=== PATIENT | male | born 1995 | race Caucasian/White ===

== ENCOUNTER 2018-02-06 06:58 | Observation (INO) | payer OTHER ==
[2018-02-06] MEDS ORDERED: MORPHINE SULFATE 4MG/4ML SYRG IV STA (07:34)
[2018-02-06] MEDS ORDERED: MORPHINE SULFATE 4 MG/ML SYRINGE IV STA (07:34)
[2018-02-06] MEDS ORDERED: RX INFO: IV CONTRAST WAS GIVEN 1 EACH MISC MISCELLANE PRN (07:34)
[2018-02-06] MEDS ORDERED: SODIUM CHLORIDE 0.9% 1,000 ML IV STA (07:34)
[2018-02-06] MEDS ORDERED: ONDANSETRON 4 MG/2 ML VIAL IVP STA (07:34)
--- NOTE | 2018-02-06 07:37 | ED ---
General Adult HPI - General Chief complaint: Abdominal Pain Stated complaint: Lower Abdominal Pain Time Seen by Provider: 02/06/18 07:26 Source: patient, family, RN notes reviewed Mode of arrival: wheelchair Limitations: no limitations - History of Present Illness Initial comments: Patient is a pleasant 22-year-old male presenting to the emergency department with complaints of abdominal discomfort. Onset of symptoms was yesterday. Onset was fairly sudden. Patient states discomfort has progressively worsened since that time. Patient has had nausea with several episodes of vomiting. No fever. Discomfort is positional. No history of similar symptoms previously. No hematuria or dysuria. No constipation or diarrhea. - Related Data Allergies Allergy/AdvReac Type Severity Reaction Status Date / Time aspirin Allergy Swelling Verified 02/06/18 07:11 Review of Systems ROS Statement: Those systems with pertinent positive or pertinent negative responses have been documented in the HPI. ROS Other: All systems not noted in ROS Statement are negative. Constitutional: Denies: fever Eyes: Denies: eye pain ENT: Denies: ear pain Respiratory: Denies: cough Cardiovascular: Denies: chest pain Endocrine: Denies: fatigue Gastrointestinal: Reports: abdominal pain, nausea, vomiting Genitourinary: Denies: dysuria Musculoskeletal: Denies: arthralgia Skin: Denies: rash Neurological: Denies: weakness Past Medical History Past Medical History: No Reported History History of Any Multi-Drug Resistant Organisms: None Reported Past Surgical History: No Surgical Hx Reported Past Psychological History: No Psychological Hx Reported Smoking Status: Current every day smoker Past Alcohol Use History: Rare Past Drug Use History: None Reported General Exam Limitations: no limitations General appearance: alert Head exam: Present: atraumatic Eye exam: Present: normal appearance Neck exam: Present: normal inspection Respiratory exam: Present: normal lung sounds bilaterally Cardiovascular Exam: Present: regular rate, normal rhythm Expanded Peripheral pulses: 2+: Dorsalis Pedis (R), Dorsalis Pedis (L) GI/Abdominal exam: Present: soft, tenderness (Moderate to severe tenderness right lower quadrant), guarding, normal bowel sounds. Absent: distended, pulsatile mass Expanded GI/Abdominal exam: Present: obturator sign Extremities exam: Present: normal inspection Back exam: Present: tenderness (Minimal tenderness below the right CVA) Neurological exam: Present: alert Psychiatric exam: Present: normal affect, normal mood Skin exam: Present: normal color Course Vital Signs 02/06/18 07:09 Temperature 97.8 F Pulse Rate 77 Respiratory 24 Rate Blood Pressure 142/87 O2 Sat by Pulse 100 Oximetry - Reevaluation(s) Reevaluation #1: 02/06/18 08:49 Patient does meet sepsis criteria. Blood culture and lactic acid and IV antibiotics have been ordered. Medical Decision Making - Medical Decision Making Patient is reevaluated and updated. Patient is resting comfortably in bed. Case was discussed in detail with Dr. bocanegra, who will take patient to the OR. - Lab Data Result diagrams: 02/06/18 07:25 02/06/18 07:25 Lab Results 02/06/18 02/06/18 02/06/18 Range/Units 07:25 07:25 07:25 WBC 17.3 H (3.8-10.6) k/uL RBC 5.71 (4.30-5.90) m/uL Hgb 17.7 H (13.0-17.5) gm/dL Hct 48.8 (39.0-53.0) % MCV 85.4 (80.0-100.0) fL MCH 31.0 (25.0-35.0) pg MCHC 36.3 (31.0-37.0) g/dL RDW 12.2 (11.5-15.5) % Plt Count 255 (150-450) k/uL Neutrophils % 80 % Lymphocytes % 12 % Monocytes % 6 % Eosinophils % 1 % Basophils % 0 % Neutrophils # 13.8 H (1.3-7.7) k/uL Lymphocytes # 2.1 (1.0-4.8) k/uL Monocytes # 1.1 H (0-1.0) k/uL Eosinophils # 0.1 (0-0.7) k/uL Basophils # 0.1 (0-0.2) k/uL Hyperchromasia Slight PT 10.3 (9.0-12.0) sec INR 1.1 (<1.2) APTT 23.4 (22.0-30.0) sec Sodium 138 (137-145) mmol/L Potassium 4.5 (3.5-5.1) mmol/L Chloride 98 (98-107) mmol/L Carbon Dioxide 25 (22-30) mmol/L Anion Gap 15 mmol/L BUN 12 (9-20) mg/dL Creatinine 0.95 (0.66-1.25) mg/dL Est GFR (CKD-EPI)AfAm >90 (>60 ml/min/1.73 sqM) Est GFR (CKD-EPI)NonAf >90 (>60 ml/min/1.73 sqM) Glucose 114 H (74-99) mg/dL Calcium 10.8 H (8.4-10.2) mg/dL Total Bilirubin 1.7 H (0.2-1.3) mg/dL AST 53 (17-59) U/L ALT 49 (21-72) U/L Alkaline Phosphatase 85 (38-126) U/L Total Protein 8.1 (6.3-8.2) g/dL Albumin 4.9 (3.5-5.0) g/dL Amylase 54 (30-110) U/L Lipase 76 (23-300) U/L Urine Color Urine Appearance (Clear) Urine pH (5.0-8.0) Ur Specific [place] (1.001-1.035) Urine Protein (Negative) Urine Glucose (UA) (Negative) Urine Ketones (Negative) Urine Blood (Negative) Urine Nitrite (Negative) Urine Bilirubin (Negative) Urine Urobilinogen (<2.0) mg/dL Ur Leukocyte Esterase (Negative) 02/06/18 Range/Units 08:25 WBC (3.8-10.6) k/uL RBC (4.30-5.90) m/uL Hgb (13.0-17.5) gm/dL Hct (39.0-53.0) % MCV (80.0-100.0) fL MCH (25.0-35.0) pg MCHC (31.0-37.0) g/dL RDW (11.5-15.5) % Plt Count (150-450) k/uL Neutrophils % % Lymphocytes % % Monocytes % % Eosinophils % % Basophils % % Neutrophils # (1.3-7.7) k/uL Lymphocytes # (1.0-4.8) k/uL Monocytes # (0-1.0) k/uL Eosinophils # (0-0.7) k/uL Basophils # (0-0.2) k/uL Hyperchromasia PT (9.0-12.0) sec INR (<1.2) APTT (22.0-30.0) sec Sodium (137-145) mmol/L Potassium (3.5-5.1) mmol/L Chloride (98-107) mmol/L Carbon Dioxide (22-30) mmol/L Anion Gap mmol/L BUN (9-20) mg/dL Creatinine (0.66-1.25) mg/dL Est GFR (CKD-EPI)AfAm (>60 ml/min/1.73 sqM) Est GFR (CKD-EPI)NonAf (>60 ml/min/1.73 sqM) Glucose (74-99) mg/dL Calcium (8.4-10.2) mg/dL Total Bilirubin (0.2-1.3) mg/dL AST (17-59) U/L ALT (21-72) U/L Alkaline Phosphatase (38-126) U/L Total Protein (6.3-8.2) g/dL Albumin (3.5-5.0) g/dL Amylase (30-110) U/L Lipase (23-300) U/L Urine Color Yellow Urine Appearance Clear (Clear) Urine pH 8.5 H (5.0-8.0) Ur Specific [place] 1.036 H (1.001-1.035) Urine Protein Trace H (Negative) Urine Glucose (UA) Negative (Negative) Urine Ketones 1+ H (Negative) Urine Blood Negative (Negative) Urine Nitrite Negative (Negative) Urine Bilirubin Negative (Negative) Urine Urobilinogen <2.0 (<2.0) mg/dL Ur Leukocyte Esterase Negative (Negative) - Radiology Data Radiology results: report reviewed (Computed tomography scan positive for appendicitis.) Critical Care Time Critical Care Time: Yes Total Critical Care Time: 34 Disposition Clinical Impression: Acute appendicitis, Sepsis Disposition: ADMITTED IP TO THIS [facility] Condition: Serious Is patient prescribed a controlled substance at d/c from ED?: No Referrals: None,Stated [Primary Care Provider] - 1-2 days Decision Time: 08:53
[2018-02-06] MEDS ORDERED: MORPHINE SULFATE 4MG/4ML SYRG ONE (07:39)
[2018-02-06 08:08] LABS: Basophils # (A) 0.1 k/uL (0-0.2); Basophils % (A) 0 %; Eosinophils # (A) 0.1 k/uL (0-0.7); Eosinophils % (A) 1 %; HCT 48.8 % (39.0-53.0); HGB 17.7 gm/dL (13.0-17.5); Hyperchromasia Slight; Lymphocytes # (A) 2.1 k/uL (1.0-4.8); Lymphocytes % (A) 12 %; MCHC 36.3 g/dL (31.0-37.0); MCV 85.4 fL (80.0-100.0); Mean Platelet Volume 9.2; Monocytes # (A) 1.1 k/uL (0-1.0); Monocytes % (A) 6 %; Neutrophils # (A) 13.8 k/uL (1.3-7.7); Neutrophils % (A) 80 %; Platelet Count 255 k/uL (150-450); RBC 5.71 m/uL (4.30-5.90); RDW 12.2 % (11.5-15.5); WBC 17.3 k/uL (3.8-10.6)
[2018-02-06 08:17] LABS: INR 1.1 (<1.2); Partial Thromboplastin Time 23.4 sec (22.0-30.0); Prothrombin Time 10.3 sec (9.0-12.0)
[2018-02-06 08:18] LABS: ALT 49 U/L (21-72); AST 53 U/L (17-59); Albumin 4.9 g/dL (3.5-5.0); Alkaline Phosphatase 85 U/L (38-126); Amylase 54 U/L (30-110); Anion Gap 15 mmol/L; Blood Urea Nitrogen 12 mg/dL (9-20); Calcium 10.8 mg/dL (8.4-10.2); Carbon Dioxide 25 mmol/L (22-30); Chloride 98 mmol/L (98-107); Glucose 114 mg/dL (74-99); Lipase 76 U/L (23-300); Potassium 4.5 mmol/L (3.5-5.1); Sodium 138 mmol/L (137-145); Total Bilirubin 1.7 mg/dL (0.2-1.3); Total Protein 8.1 g/dL (6.3-8.2)
--- NOTE | 2018-02-06 08:21 | CT ---
EXAMINATION TYPE: CT abdomen pelvis w con DATE OF EXAM: 02/06/2018 REFERENCE: NONE HISTORY: abdominal pain HISTORY: RLQ pain REFERENCE: NONE CT DLP: 1008.5 mGy Automated exposure control for dose reduction was used. TECHNIQUE: Helical acquisition through the abdomen and pelvis was obtained following the oral ingesti on of without Oral Contrast and following intravenous administration of 100 mL of Isovue 300. The suzie a was reformatted in axial, coronal and sagittal projections. FINDINGS: Visualized portions of the lungs are clear. There is no pleural or pericardial fluid. The heart is not enlarged. There is a tiny hiatal hernia. Within the abdomen, the liver, spleen and gallbladder appear normal. Both adrenal glands appear normal. Both kidneys demonstrate function and appear morphologically normal. The pancreas is unremarkable. There is no significant retroperitoneal, iliac or inguinal adenopathy. The bladder is unremarkable. There is no significant diverticular change and there is no radiographic evidence of diverticulitis. The appendix is swollen measuring 10 mm. There is periappendiceal inflammation. There is no definite abscess. Small bowel loops are normal. There is no free fluid and no free air. No bony lesion is seen. IMPRESSION: ACUTE APPENDICITIS.
[2018-02-06 08:49] LABS: Appearance,Urine Clear (Clear); Bilirubin,Urine Negative (Negative); Blood,Urine Negative (Negative); Color,Urine Yellow; Glucose,Urine (UA) Negative (Negative); Ketones,Urine 1+ (Negative); Leukocyte Esterase,Urine Negative (Negative); Nitrite,Urine Negative (Negative); PH, Urine 8.5 (5.0-8.0); Protein,Urine Trace (Negative); Specific Gravity,Urine 1.036 (1.001-1.035); Urobilinogen,Urine <2.0 mg/dL (<2.0)
[2018-02-06] MEDS ORDERED: SODIUM CHLORIDE 0.9% 1,000 ML IV ONE (08:54)
[2018-02-06] MEDS ORDERED: AMPICILLIN-SULBACTAM 3 GM in SODIUM CHLORIDE 0.9% 100 ML IVPB STA (08:56)
--- NOTE | 2018-02-06 10:02 | P.GSHP ---
History of Present Illness H&P Date: 02/06/18 This is a 22-year-old male has been experiencing nausea and vomiting for a week he began experiencing right lower quadrant pain 24 hours ago he states. He denies any fevers or chills. He's never had pain like this before. He hasn't had an appetite and has had nothing to eat the last 24 hours. He's passing normal bowel movements. No blood. He denies any sick contacts. He has no other complaints at this time he has no past surgical or medical history Past Medical History Past Medical History: No Reported History History of Any Multi-Drug Resistant Organisms: None Reported Past Surgical History: No Surgical Hx Reported Past Psychological History: No Psychological Hx Reported Smoking Status: Current every day smoker Past Alcohol Use History: Rare Past Drug Use History: None Reported Medications and Allergies Allergies Allergy/AdvReac Type Severity Reaction Status Date / Time aspirin Allergy Swelling Verified 02/06/18 07:11 Surgical - Exam Osteopathic Statement: *. No significant issues noted on an osteopathic structural exam other than those noted in the History and Physical/Consult. Vital Signs Temp Pulse Resp BP Pulse Ox 97.8 F 77 24 142/87 100 02/06/18 07:09 02/06/18 07:09 02/06/18 07:09 02/06/18 07:09 02/06/18 07:09 - General well developed, well nourished, no distress - Eyes PERRL - ENT normal mucosa - Neck no masses, trachea midline - Respiratory normal expansion, normal respiratory effort - Cardiovascular Rhythm: regular - Abdomen Soft nondistended tender to palpation in right lower quadrant - Neurologic normal coordination, normal sensation - Musculoskeletal normal gait - Psychiatric oriented to time, oriented to person, oriented to place Results - Labs 02/06/18 07:25 02/06/18 07:25 Abnormal Lab Results - Last 24 Hours (Table) 02/06/18 02/06/18 02/06/18 Range/Units 07:25 07:25 08:25 WBC 17.3 H (3.8-10.6) k/uL Hgb 17.7 H (13.0-17.5) gm/dL Neutrophils # 13.8 H (1.3-7.7) k/uL Monocytes # 1.1 H (0-1.0) k/uL Glucose 114 H (74-99) mg/dL Calcium 10.8 H (8.4-10.2) mg/dL Total Bilirubin 1.7 H (0.2-1.3) mg/dL Urine pH 8.5 H (5.0-8.0) Ur Specific [place] 1.036 H (1.001-1.035) Urine Protein Trace H (Negative) Urine Ketones 1+ H (Negative) Diabetes panel 02/06/18 Range/Units 07:25 Sodium 138 (137-145) mmol/L Potassium 4.5 (3.5-5.1) mmol/L Chloride 98 (98-107) mmol/L Carbon Dioxide 25 (22-30) mmol/L BUN 12 (9-20) mg/dL Creatinine 0.95 (0.66-1.25) mg/dL Glucose 114 H (74-99) mg/dL Calcium 10.8 H (8.4-10.2) mg/dL AST 53 (17-59) U/L ALT 49 (21-72) U/L Alkaline Phosphatase 85 (38-126) U/L Total Protein 8.1 (6.3-8.2) g/dL Albumin 4.9 (3.5-5.0) g/dL Calcium panel 02/06/18 Range/Units 07:25 Calcium 10.8 H (8.4-10.2) mg/dL Albumin 4.9 (3.5-5.0) g/dL Pituitary panel 02/06/18 Range/Units 07:25 Sodium 138 (137-145) mmol/L Potassium 4.5 (3.5-5.1) mmol/L Chloride 98 (98-107) mmol/L Carbon Dioxide 25 (22-30) mmol/L BUN 12 (9-20) mg/dL Creatinine 0.95 (0.66-1.25) mg/dL Glucose 114 H (74-99) mg/dL Calcium 10.8 H (8.4-10.2) mg/dL Adrenal panel 02/06/18 Range/Units 07:25 Sodium 138 (137-145) mmol/L Potassium 4.5 (3.5-5.1) mmol/L Chloride 98 (98-107) mmol/L Carbon Dioxide 25 (22-30) mmol/L BUN 12 (9-20) mg/dL Creatinine 0.95 (0.66-1.25) mg/dL Glucose 114 H (74-99) mg/dL Calcium 10.8 H (8.4-10.2) mg/dL Total Bilirubin 1.7 H (0.2-1.3) mg/dL AST 53 (17-59) U/L ALT 49 (21-72) U/L Alkaline Phosphatase 85 (38-126) U/L Total Protein 8.1 (6.3-8.2) g/dL Albumin 4.9 (3.5-5.0) g/dL - Imaging CT scan - abdomen: report reviewed, image reviewed CT scan - pelvis: report reviewed, image reviewed Assessment and Plan Assessment: Acute appendicitis Plan: IV antibiotics and by mouth plan is for laparoscopic appendectomy possible open appendectomy. I discussed with the patient since this has been going on longer than 24 hours he is at a higher risk for the appendix being perforated prior to surgery. I discussed with him the risks benefits and alternatives to laparoscopic possible open appendectomy including risks of bleeding infection damage to surrounding tissues need for further operation need for conversion to open. Patient stated he understood and agreed and consented
[2018-02-06] MEDS ORDERED: HEPARIN SODIUM,PORCINE 5,000 UNIT/ML 1 ML VIAL SQ STA (10:05)
[2018-02-06] MEDS ORDERED: fentaNYL (PF) 50 MCG/ML 2 ML AMP ONE (10:21)
[2018-02-06] MEDS ORDERED: GLYCOPYRROLATE 0.2 MG/ML 2 ML VIAL ONE (10:21)
[2018-02-06] MEDS ORDERED: IV FLUID CONTINUATION 900 ML IV ONE (10:21)
[2018-02-06] MEDS ORDERED: MIDAZOLAM 2 MG/2 ML VIAL ONE (10:21)
[2018-02-06] MEDS ORDERED: ONDANSETRON 4 MG/2 ML VIAL ONE (10:21)
[2018-02-06] MEDS ORDERED: ROCURONIUM BROMIDE 10 MG/ML 10 ML VIAL IV ONE (10:21)
[2018-02-06] MEDS ORDERED: DEXAMETHASONE SOD PHOS (MDV) 100 MG/10 ML VIAL ONE (10:21)
[2018-02-06] MEDS ORDERED: SUCCINYLCHOLINE CHLORIDE 100 MG/5 ML SYR IV ONE (10:21)
[2018-02-06] MEDS ORDERED: NEOSTIGMINE 1 MG/ML 10 ML VIAL ONE (10:21)
[2018-02-06] MEDS ORDERED: PROPOFOL 10 MG/ML 20 ML VIAL IV ONE (10:21)
[2018-02-06] MEDS ORDERED: BUPIVACAINE (PF) 0.25% 30 ML VIAL SQ ONE ×2 (10:58→11:20)
[2018-02-06] MEDS ORDERED: LIDOCAINE 1%-EPI 1:100,000 30 ML VIAL SQ ONE ×2 (10:58→11:20)
[2018-02-06] MEDS ORDERED: MORPHINE SULFATE 4 MG/0.8 ML SYRINGE (INJ) IVP PRN (11:36)
[2018-02-06] MEDS ORDERED: NALOXONE 0.4 MG/ML 1 ML VIAL IV PRN (11:36)
[2018-02-06] MEDS ORDERED: LACTATED RINGERS 1,000 ML IV ONE ×3 (11:36→11:59)
[2018-02-06] MEDS ORDERED: ONDANSETRON 4 MG/2 ML VIAL IVP PRN (11:36)
--- NOTE | 2018-02-06 11:36 | P.OP ---
Date of Procedure: 02/06/18 Preoperative Diagnosis: Acute appendicitis Postoperative Diagnosis: Acute gangrenous appendicitis Procedure(s) Performed: Laparoscopic appendectomy Anesthesia: ELINA Surgeon: Feliberto Torres Estimated Blood Loss (ml): 5 Condition: stable Disposition: PACU Indications for Procedure: This is a 22-year-old male been exchanging nausea and vomiting for 1 week and right lower quadrant pain for the last 24 hours he was clinically found to have symptoms and a workup consistent with acute appendicitis. he was described the risks benefits and alternatives to laparoscopic appendectomy possible open risks including bleeding infection damage surrounding tissue need for further operation and conversion to open he stated he understood agreed and consented informed consent was obtained Operative Findings: Acute gangrenous appendicitis Description of Procedure: Patient was broughtInto the operative suite remained in the supine position underwent general endotracheal anesthesia per Department of anesthesia he was prepped and draped in the usual sterile fashion timeout was performed correct patient correct site and correct procedure was verified. A 2 cm incision was made in the left lower quadrant and using a 12 mm Visiport the abdomen was entered under direct visualization and insufflated no injuries were noted a 5 mm port was placed supraumbilical under direct visualization and a 5 mm port was placed suprapubic under direct visualization. The patient was placed in Trendelenburg right side up and attention was turned to the right lower quadrant where there was phlegmon and inflammation noted. The tip of the appendix was identified and the appendix was noted to be gangrenous. Using a LigaSure device the mesial appendix was taken down to the base of the appendix at the base of the cecum. A 45 mm purple load Endo CL stapler was used to staple across the appendix at the base of the cecum. The appendix was then removed with an Endo Catch bag through the 12 mm port site. The area was irrigated and suctioned and hemostasis was noted. The 12 mm port site was closed with the 0 Vicryl in the 8 of a Ish-Rosalio suture passer under direct visualization. All ports removed under direct visualization and hemostasis was noted. The abdomen was desufflated the skin was closed with 4-0 Monocryl sutures and skin glue patient tolerated the procedure well there are no apparent complications
[2018-02-06 11:53] VITALS: RESP 16
[2018-02-06] MEDS ORDERED: MEPERIDINE 50 MG/ML SYRINGE IVP ONE ×2 (12:03→12:25)
[2018-02-06 13:29] VITALS: BMI 61.2
[2018-02-06] MEDS ORDERED: HYDROmorphone 2 MG TAB PO PRN (15:20)
[2018-02-06] MEDS: PIPERACILLIN-TAZOBACTAM 3.375 GM in DEXTROSE/WATER 1 50ML.BAG IVPB SCH ×2 (17:47→23:45)
[2018-02-06] MEDS: HYDROcodone/APAP 5-325MG 1 EACH TAB PO PRN (20:31)
[2018-02-06 20:40] VITALS: PULSE 62
[2018-02-07 07:17] LABS: Basophils % (A) 0 %; Eosinophils % (A) 0 %; HCT 40.4 % (39.0-53.0); Lymphocytes # (A) 1.8 k/uL (1.0-4.8); Lymphocytes % (A) 11 %; MCH 30.8 pg (25.0-35.0); MCHC 35.1 g/dL (31.0-37.0); MCV 87.6 fL (80.0-100.0); Mean Platelet Volume 9.4; Monocytes # (A) 0.9 k/uL (0-1.0); Monocytes % (A) 6 %; Neutrophils # (A) 13.2 k/uL (1.3-7.7); Neutrophils % (A) 82 %; Platelet Count 185 k/uL (150-450); RBC 4.61 m/uL (4.30-5.90); RDW 12.3 % (11.5-15.5); WBC 16.1 k/uL (3.8-10.6)
[2018-02-07 07:30] LABS: HGB 14.2 gm/dL (13.0-17.5)
[2018-02-07 07:39] LABS: ALT 40 U/L (21-72); AST 69 U/L (17-59); Albumin 3.4 g/dL (3.5-5.0); Alkaline Phosphatase 52 U/L (38-126); Anion Gap 8 mmol/L; Blood Urea Nitrogen 12 mg/dL (9-20); Calcium 9.2 mg/dL (8.4-10.2); Carbon Dioxide 28 mmol/L (22-30); Chloride 101 mmol/L (98-107); Glucose 104 mg/dL (74-99); Sodium 137 mmol/L (137-145); Total Bilirubin 1.4 mg/dL (0.2-1.3)
[2018-02-07] MEDS: PIPERACILLIN-TAZOBACTAM 3.375 GM in DEXTROSE/WATER 1 50ML.BAG IVPB SCH (07:55)
[2018-02-07 08:05] VITALS: BP 130/65; TEMP 97.9
[2018-02-07 08:16] LABS: Potassium 4.2 mmol/L (3.5-5.1)
[2018-02-07] MEDS: HYDROcodone/APAP 5-325MG 1 EACH TAB PO PRN (10:14)
--- NOTE | 2018-02-07 11:18 | P.DS ---
Providers Date of admission: 02/06/18 08:59 Attending physician: Feliberto Torres DO Consults: 02/06/18 10:04 Consult Physician Routine Consulting Provider: [facility] Consult Reason/Comments: [facility] Do you want consulting provider notified?: Yes Primary care physician: Stated None Hospital Course: This a 22-year-old male who presented on 02/06/2018 with clinical findings consistent with acute appendicitis. He was taken to the operating room for laparoscopic appendectomy. Procedure was without complication. Overnight he was given clear liquid diet. He states in the morning that his pain was markedly improved. He was stable overnight vital signs were stable began tolerating a regular diet. He was discharged home on 02/07/2018 in stable condition with instructions to follow-up in 2 weeks. Procedures: Laparoscopic appendectomy Patient Condition at Discharge: Stable Plan - Discharge Summary Discharge Rx Participant: No New Discharge Prescriptions: New HYDROcodone/APAP 5-325MG [Strawn 5-325] 1 tab PO Q6HR PRN #15 tab PRN Reason: Pain Discharge Medication List HYDROcodone/APAP 5-325MG [Strawn 5-325] 1 tab PO Q6HR PRN #15 tab 02/07/18 [Rx] Follow up Appointment(s)/Referral(s): Feliberto Torres DO [Doctor of Osteopathic Medicine] - 2 Weeks None,Stated [Primary Care Provider] - 1-2 days Patient Instructions/Handouts: Laparoscopic Appendectomy (DC) Activity/Diet/Wound Care/Special Instructions: As tolerated, do not lift over 15 pounds until after office visit in 2 weeks. May shower do not submerge wounds underwater in bathtub Discharge Disposition: HOME SELF-CARE
== END 2018-02-07 13:35 | disposition home or self-care (01) ==
LOC: EC 06:58 → 3SUR 08:59 → 3OBS 09:59 → 3SUR 11:51
PROVIDERS: ADMIT Student in an Organized Health Care Education/Training Program; ATTEND Student in an Organized Health Care Education/Training Program
DX: K35.80 Unspecified acute appendicitis (principal); F17.200 Nicotine dependence, unspecified, uncomplicated; Z88.6 Allergy status to analgesic agent
CPT/HCPCS: 44970; 99285 ×2; 96365 ×2; 96375 ×3; 36415; 88304; 80053 ×2; 82150; 83605; 83690; 85025 ×2; 85610; 85730; 81003; 87040; 74177; G0378 ×3; J2250; J2270 ×3; J2710; J2175; J2405; J3010; J2543 ×2; J0295; J1100; J0330; J2704; Q9967

== ENCOUNTER 2019-07-07 09:32 | Emergency (ER) | payer OTHER ==
[2019-07-07] MEDS ORDERED: MORPHINE SULFATE 2 MG/ML SYRINGE IVP STA (10:47)
[2019-07-07] MEDS ORDERED: ONDANSETRON 4 MG/2 ML VIAL IVP STA (10:47)
[2019-07-07] MEDS ORDERED: SODIUM CHLORIDE 0.9% 1,000 ML IV STA (10:47)
[2019-07-07] MEDS ORDERED: FAMOTIDINE 20 MG/2 ML VIAL IV STA (10:48)
[2019-07-07 11:16] VITALS: RESP 18; TEMP 97.9
[2019-07-07 11:19] LABS: Basophils # (A) 0.1 k/uL (0-0.2); Basophils % (A) 1 %; Eosinophils # (A) 0.7 k/uL (0-0.7); Eosinophils % (A) 8 %; HCT 44.8 % (39.0-53.0); HGB 15.9 gm/dL (13.0-17.5); Lymphocytes # (A) 2.3 k/uL (1.0-4.8); Lymphocytes % (A) 26 %; MCH 31.7 pg (25.0-35.0); MCHC 35.6 g/dL (31.0-37.0); MCV 89.1 fL (80.0-100.0); Mean Platelet Volume 9.6; Monocytes # (A) 0.4 k/uL (0-1.0); Monocytes % (A) 4 %; Neutrophils # (A) 5.3 k/uL (1.3-7.7); Neutrophils % (A) 60 %; Platelet Count 220 k/uL (150-450); RBC 5.02 m/uL (4.30-5.90); RDW 12.4 % (11.5-15.5); WBC 8.9 k/uL (3.8-10.6)
[2019-07-07 11:27] LABS: ALT 24 U/L (21-72); AST 42 U/L (17-59); African American GFR (CKD) >90 (>60 ml/min/1.73 sqM); Albumin 4.1 g/dL (3.5-5.0); Alkaline Phosphatase 47 U/L (38-126); Amylase 81 U/L (30-110); Anion Gap 7 mmol/L; Blood Urea Nitrogen 8 mg/dL (9-20); Calcium 9.7 mg/dL (8.4-10.2); Carbon Dioxide 27 mmol/L (22-30); Chloride 105 mmol/L (98-107); Glucose 82 mg/dL (74-99); Potassium 4.4 mmol/L (3.5-5.1); Sodium 139 mmol/L (137-145); Total Bilirubin 0.4 mg/dL (0.2-1.3); Total Protein 6.9 g/dL (6.3-8.2)
--- NOTE | 2019-07-07 12:24 | CT ---
EXAMINATION TYPE: CT abdomen pelvis w con DATE OF EXAM: 07/07/2019 COMPARISON: Prior CT 02/06/2018 HISTORY: Vomiting, RLQ pain, R/O appendicitis CT DLP: 1261 mGycm Automated exposure control for dose reduction was used. TECHNIQUE: Helical acquisition of images from the lung bases through the pelvis have been completed. CONTRAST: Performed without Oral Contrast and with IV Contrast, patient injected with 100 ml mL of Isovue 300. FINDINGS: LUNG BASES: Some groundglass opacity present in the dependent portions of the lung bases posteriorly, no pleural or pericardial effusion AORTA: No significant abnormality is appreciated. LIVER/GB: No significant abnormality is appreciated. PANCREAS: No significant abnormality is seen. SPLEEN: No significant abnormality is seen. ADRENALS: No significant abnormality is seen. KIDNEYS: No significant abnormality is seen. REPRODUCTIVE ORGANS: No significant abnormality is seen BOWEL: Patient is post appendectomy. No evident bowel obstruction. FREE AIR: No Free Air visible. ASCITES: None visible. PELVIC ADENOPATHY: None visualized. RETROPERITONEAL ADENOPATHY: No Retroperitoneal Adenopathy visible. URINARY BLADDER: No significant abnormality is seen. OSSEOUS STRUCTURES: No significant abnormality is seen. IMPRESSION: PATIENT IS POST APPENDECTOMY, FINDINGS OF APPENDICITIS SEEN ON PRIOR CT HAVE RESOLVED. NO ABNORMALITY EVIDENT TO ACCOUNT FOR PATIENT'S RIGHT LOWER QUADRANT PAIN.
[2019-07-07 12:55] VITALS: BP 109/61; PULSE 57
[2019-07-07] MEDS ORDERED: METOCLOPRAMIDE 5 MG/ML 2 ML VIAL IVP STA (12:58)
[2019-07-07] MEDS ORDERED: diphenhydrAMINE 50 MG/ML 1 ML VIAL IVP STA ×2 (12:58→13:02)
[2019-07-07 13:06] LABS: Appearance,Urine Clear (Clear); Bilirubin,Urine Negative (Negative); Blood,Urine Negative (Negative); Color,Urine Light Yellow; Glucose,Urine (UA) Negative (Negative); Ketones,Urine Negative (Negative); Leukocyte Esterase,Urine Negative (Negative); Nitrite,Urine Negative (Negative); Protein,Urine Negative (Negative); Specific Gravity,Urine 1.007 (1.001-1.035); Urobilinogen,Urine <2.0 mg/dL (<2.0)
--- NOTE | 2019-07-07 13:42 | ED ---
General Adult HPI - General Chief complaint: Nausea/Vomiting/Diarrhea Stated complaint: vomiting Time Seen by Provider: 07/07/19 10:00 Source: patient, RN notes reviewed Mode of arrival: ambulatory Limitations: no limitations - History of Present Illness Initial comments: 23-year-old male without any significant past medical history presents to the emergency department for a chief complaint of nausea vomiting diarrhea times 4 days. Patient states he has vomiting several times a day and then diarrhea multiple times every morning. States he has some generalized abdominal pain as well. Denies fevers or chills. Denies any recent travel. Denies any camping.Patient has no other complaints at this time including shortness of breath, chest pain, headache, or visual changes. - Related Data Previous Rx's Medication Instructions Recorded Ondansetron [Zofran ODT] 4 mg PO Q8HR PRN #15 tab 07/07/19 Allergies Allergy/AdvReac Type Severity Reaction Status Date / Time aspirin Allergy Swelling Verified 07/07/19 10:00 Review of Systems ROS Statement: Those systems with pertinent positive or pertinent negative responses have been documented in the HPI. ROS Other: All systems not noted in ROS Statement are negative. Past Medical History Past Medical History: No Reported History Additional Past Medical History / Comment(s): heart murmur as a child History of Any Multi-Drug Resistant Organisms: None Reported Past Surgical History: Appendectomy Past Psychological History: No Psychological Hx Reported Smoking Status: Current every day smoker Past Alcohol Use History: Rare Past Drug Use History: None Reported - Past Family History Mother Additional Family Medical History / Comment(s): Mom has MS since 1999 General Exam Limitations: no limitations General appearance: alert, in no apparent distress Head exam: Present: atraumatic, normocephalic, normal inspection Eye exam: Present: normal appearance, PERRL, EOMI. Absent: scleral icterus, conjunctival injection, periorbital swelling ENT exam: Present: normal exam, mucous membranes moist Neck exam: Present: normal inspection, full ROM. Absent: tenderness, meningismus, lymphadenopathy Respiratory exam: Present: normal lung sounds bilaterally. Absent: respiratory distress, wheezes, rales, rhonchi, stridor Cardiovascular Exam: Present: regular rate, normal rhythm, normal heart sounds. Absent: systolic murmur, diastolic murmur, rubs, gallop, clicks GI/Abdominal exam: Present: soft, tenderness (Generalized abdominal tendern ess.), normal bowel sounds. Absent: distended, guarding, rebound, rigid Neurological exam: Present: alert Psychiatric exam: Present: normal affect, normal mood Course Vital Signs 07/07/19 07/07/19 07/07/19 09:47 11:15 12:53 Temperature 98.2 F 97.9 F Pulse Rate 81 54 L 57 L Respiratory 16 18 18 Rate Blood Pressure 139/80 121/64 109/61 O2 Sat by Pulse 97 95 97 Oximetry Medical Decision Making - Medical Decision Making 23-year-old male without any significant past medical history presents for nausea vomiting diarrhea and abdominal pain for 4 days. No fevers or chills. Vitals are stable here in the emergency department. Exam reveals generalized abdominal tenderness. CBC CMP unremarkable. Urine negative. CT shows no abnormality evident to account for patient's abdominal pain. Patient apparently has history of appendectomy, this was recorded by myself in his medical chart. Patient was given Zofran and Reglan. Patient actually felt much better at this time. Patient will be given Zofran for antinausea medications at home as well as work note. Patient will be given an outpatient stool culture prescription. He will follow up with primary care in 1-2 days and return if he has any worsening symptoms. - Lab Data Result diagrams: 07/07/19 10:20 07/07/19 10:20 Lab Results 07/07/19 07/07/19 07/07/19 Range/Units 10:20 10:20 12:45 WBC 8.9 (3.8-10.6) k/uL RBC 5.02 (4.30-5.90) m/uL Hgb 15.9 (13.0-17.5) gm/dL Hct 44.8 (39.0-53.0) % MCV 89.1 (80.0-100.0) fL MCH 31.7 (25.0-35.0) pg MCHC 35.6 (31.0-37.0) g/dL RDW 12.4 (11.5-15.5) % Plt Count 220 (150-450) k/uL Neutrophils % 60 % Lymphocytes % 26 % Monocytes % 4 % Eosinophils % 8 % Basophils % 1 % Neutrophils # 5.3 (1.3-7.7) k/uL Lymphocytes # 2.3 (1.0-4.8) k/uL Monocytes # 0.4 (0-1.0) k/uL Eosinophils # 0.7 (0-0.7) k/uL Basophils # 0.1 (0-0.2) k/uL Sodium 139 (137-145) mmol/L Potassium 4.4 (3.5-5.1) mmol/L Chloride 105 (98-107) mmol/L Carbon Dioxide 27 (22-30) mmol/L Anion Gap 7 mmol/L BUN 8 L (9-20) mg/dL Creatinine 0.87 (0.66-1.25) mg/dL Est GFR (CKD-EPI)AfAm >90 (>60 ml/min/1.73 sqM) Est GFR (CKD-EPI)NonAf >90 (>60 ml/min/1.73 sqM) Glucose 82 (74-99) mg/dL Calcium 9.7 (8.4-10.2) mg/dL Total Bilirubin 0.4 (0.2-1.3) mg/dL AST 42 (17-59) U/L ALT 24 (21-72) U/L Alkaline Phosphatase 47 (38-126) U/L Total Protein 6.9 (6.3-8.2) g/dL Albumin 4.1 (3.5-5.0) g/dL Amylase 81 (30-110) U/L Lipase 70 (23-300) U/L Urine Color Light Yellow Urine Appearance Clear (Clear) Urine pH 8.0 (5.0-8.0) Ur Specific [place] 1.007 (1.001-1.035) Urine Protein Negative (Negative) Urine Glucose (UA) Negative (Negative) Urine Ketones Negative (Negative) Urine Blood Negative (Negative) Urine Nitrite Negative (Negative) Urine Bilirubin Negative (Negative) Urine Urobilinogen <2.0 (<2.0) mg/dL Ur Leukocyte Esterase Negative (Negative) Disposition Clinical Impression: Nausea vomiting and diarrhea Disposition: HOME SELF-CARE Condition: Good Instructions (If sedation given, give patient instructions): Acute Nausea and Vomiting in Children (ED), Acute Diarrhea (ED) Additional Instructions: Please follow up with primary care in 1-2 days. Take Zofran as needed for nausea. Return to the emergency department if you have any worsening symptoms. Prescriptions: Ondansetron [Zofran ODT] 4 mg PO Q8HR PRN #15 tab PRN Reason: Nausea Is patient prescribed a controlled substance at d/c from ED?: No Referrals: Asa Borjas MD [REFERRING] - 1-2 days Time of Disposition: 14:18
== END 2019-07-07 14:29 | disposition home or self-care (01) ==
LOC: EC 09:32
DX: R11.2 Nausea with vomiting, unspecified (principal); R19.7 Diarrhea, unspecified; R10.84 Generalized abdominal pain; F17.200 Nicotine dependence, unspecified, uncomplicated; Z88.6 Allergy status to analgesic agent; Z90.49 Acquired absence of other specified parts of digestive tract; Z53.8 Procedure and treatment not carried out for other reasons
CPT/HCPCS: 36415; 80053; 82150; 83690; 85025; 81003; 74177; 99284; 96374; 96375 ×4; 96361 ×2; J1200; J2765; J2405; J2270; Q9967

== ENCOUNTER 2019-07-24 12:57 | Emergency (ER) | payer OTHER ==
[2019-07-24] MEDS ORDERED: HYDROcodone/APAP 5-325MG 1 EACH TAB PO STA (13:28)
[2019-07-24] MEDS ORDERED: LIDOCAINE 1% INJ 10MG/ML (20 ML MDV) SQ ONE (14:11)
--- NOTE | 2019-07-24 14:11 | XR ---
EXAMINATION TYPE: XR hand limited LT DATE OF EXAM: 07/24/2019 COMPARISON: NONE HISTORY: Laceration TECHNIQUE: 3 views FINDINGS: There is flexion deformity at the PIP joint of the index finger. There is lucency on the do rsum of the PIP joint consistent with laceration. I see no foreign body. There is no fracture. Metacarpals are intact. IMPRESSION: Laceration deformity at the PIP joint of the index finger. No fracture seen.
--- NOTE | 2019-07-24 14:18 | ED ---
Wound/Laceration HPI - General Source: patient Mode of arrival: ambulatory Limitations: no limitations <Bernice Damon - Last Filed: 07/24/19 19:29> <Lety Mccormick - Last Filed: 07/26/19 23:58> - General Chief Complaint: Wound/Laceration Stated Complaint: finger injury Time Seen by Provider: 07/24/19 13:14 - History of Present Illness Initial Comments: Patient is a 23-year-old male presenting to emergency Department with complaints of a laceration to his left index finger that happened prior to arrival. P atient states his was working on his vehicle and got his finger stuck in a rubber roller grinder. Patient has a laceration to the dorsal aspect of his left index finger. Patient states he is unable to extend his finger. Bleeding is controlled at this time. Patient states he had tetanus vaccine last year. Denies being on blood thinners. Patient has no pertinent past medical history. There are no other complaints at this time. Upon arrival to ER, vital signs are stable. (Bernice Damon) - Related Data Previous Rx's Medication Instructions Recorded Ondansetron [Zofran ODT] 4 mg PO Q8HR PRN #15 tab 07/07/19 Cephalexin [Keflex] 500 mg PO BID 7 Days #14 cap 07/24/19 Allergies Allergy/AdvReac Type Severity Reaction Status Date / Time aspirin Allergy Swelling Verified 07/24/19 13:07 Review of Systems ROS Other: All systems not noted in ROS Statement are negative. <Bernice Damon - Last Filed: 07/24/19 19:29> ROS Other: All systems not noted in ROS Statement are negative. <Lety Mccormick - Last Filed: 07/26/19 23:58> ROS Statement: Those systems with pertinent positive or pertinent negative responses have been documented in the HPI. Past Medical History Past Medical History: No Reported History Additional Past Medical History / Comment(s): heart murmur as a child History of Any Multi-Drug Resistant Organisms: None Reported Past Surgical History: Appendectomy Past Psychological History: No Psychological Hx Reported Smoking Status: Current every day smoker Past Alcohol Use History: Rare Past Drug Use History: None Reported - Past Family History Mother Additional Family Medical History / Comment(s): Mom has MS since 1999 <Bernice Damon - Last Filed: 07/24/19 19:29> General Exam Limitations: no limitations <Bernice Damon - Last Filed: 07/24/19 19:29> - General Exam Comments Initial Comments: GENERAL: Well-appearing, well-nourished and in no acute distress. HEAD: Atraumatic, normocephalic. EYES: Pupils equal round and reactive to light, extraocular movements intact, sclera anicteric, conjunctiva are normal. ENT: TMs normal, nares patent, oropharynx clear without exudates. Moist mucous membranes. NECK: Normal range of motion, supple without lymphadenopathy or JVD. LUNGS: Breath sounds clear to auscultation bilaterally and equal. No wheezes rales or rhonchi. HEART: Regular rate and rhythm without murmurs, rubs or gallops. ABDOMEN: Soft, nontender, normoactive bowel sounds. No guarding, no rebound. No masses appreciated. : Deferred EXTREMITIES: Patient has laceration over left index finger, dorsal aspect, proximal to PIP joint. Patient is unable to extend PIP joint. Neurovascular intact. There is no surrounding erythema or edema. NEUROLOGICAL: Cranial nerves II through XII grossly intact. Normal speech, normal gait. PSYCH: Normal mood, normal affect. SKIN: Warm, Dry, normal turgor, no rashes. Patient has 1 cm laceration to left index finger. Bleeding is controlled at this time. (Bernice Damon) Course Vital Signs 07/24/19 07/24/19 13:05 16:19 Temperature 97.4 F L 98.0 F Pulse Rate 61 64 Respiratory 20 18 Rate Blood Pressure 122/75 124/73 O2 Sat by Pulse 97 98 Oximetry Procedures - Laceration Laceration #1 Consent Obtained: verbal consent Indication: laceration Site: other (Left index finger, dorsal aspect, proximal to the PIP joint.) Size (cm): 1 Description: linear Depth: simple, single layer Anesthetic Used: lidocaine 1% Anesthesia Technique: local infiltration Amount (mls): 2 Pre-repair: irrigated extensively Type of Sutures: nylon Size of Sutures: 5-0 Number of Sutures: 2 Technique: simple, interrupted Patient Tolerated Procedure: well <Bernice Damon - Last Filed: 07/24/19 19:29> - Laceration Laceration #1 Additional Comments: 2 sutures were placed loosely. (Bernice Damon) Medical Decision Making <Bernice Damon - Last Filed: 07/24/19 19:29> <Lety Mccormick - Last Filed: 07/26/19 23:58> - Medical Decision Making Patient is a 23-year-old male presenting with a 1 cm laceration to the dorsal aspect of the left index finger, proximal to the PIP joint. Patient is unable to extend his left index finger indicating tendon involvement. X-rays are negative for fractures. Patient's tetanus vaccine is up-to-date. Patient's wound was irrigated extensively, and 2 sutures were placed loosely. Patient tolerated procedure well. Patient was placed in a splint to keep finger extended. Patient will be started on Keflex. Spoke to Dr. Thomas monogram operator with Ortho who will see the patient tomorrow in the clinic. Patient is stable for discharge at this time. Return parameters were discussed with the patient he verbalizes understanding. Case discussed with Dr. Mccormick. (Bernice Damon) I was available for consultation in the emergency department. The history and physical exam were done by the midlevel provider. I was consulted for this patients care. I reviewed the case with the midlevel provider and based on their presentation of the patient, I agree with the assessment, medical decision making and plan of care as documented. Chart was dictated using [employer] dictation software. Attempts were made to correct any dictation errors however some typographical errors may persist. (Lety Mccormick) Disposition Is patient prescribed a controlled substance at d/c from ED?: No <Bernice Damon - Last Filed: 07/24/19 19:29> <Lety Mccormick - Last Filed: 07/26/19 23:58> Clinical Impression: Laceration of left index finger with tendon involvement Disposition: HOME SELF-CARE Condition: Stable Instructions (If sedation given, give patient instructions): Care For Your Stitches (ED), Tendon Laceration (ED) Additional Instructions: Please return to the Emergency Department if symptoms worsen or any other concerns. Follow-up with orthopedics as discussed tomorrow morning. Keep splint in place and covered. Prescriptions: Cephalexin [Keflex] 500 mg PO BID 7 Days #14 cap Referrals: None,Stated [Primary Care Provider] - 1-2 days Petrocelli,David A, DO [Medical Doctor] - 1-2 days
[2019-07-24] MEDS ORDERED: ACET/COD 300 MG/30 MG STARTER PACK 6 TAB BTL PO STA (16:12)
[2019-07-24 16:23] VITALS: BP 124/73; PULSE 64; RESP 18; TEMP 98
== END 2019-07-24 16:23 | disposition home or self-care (01) ==
LOC: EC 12:57
DX: S61.211A Laceration without foreign body of left index finger without damage to nail, initial encounter (principal); F17.200 Nicotine dependence, unspecified, uncomplicated; Z88.6 Allergy status to analgesic agent; W31.89XA Contact with other specified machinery, initial encounter; Y93.89 Activity, other specified; Y92.009 Unspecified place in unspecified non-institutional (private) residence as the place of occurrence of the external cause
CPT/HCPCS: 73120; 99283; 12001; J2001